=== PATIENT | female | born 1995 | race Caucasian/White ===

== ENCOUNTER → 2021-11-08 | Outpatient (CLI) | payer OTHER, SELFPAY ==
[2021-11-08 15:27] LABS: Absolute Lymphocyte Count 1.72 X10^3/uL (0.83-4.51); Absolute Neutrophil Count 5.3 X10^3/uL (2.0-7.7); Basophil# 0.05 X10^3/uL; Basophil% 0.6 % (0-1); Eosinophil# 0.56 X10^3/uL; Eosinophils% 6.5 % (0-5); Hematocrit 36.9 % (37-47); Lymphocyte # 1.72 X10^3/ul (0.83-4.51); Mean Corp Hgb Conc 35.2 g/dL (32-36); Mean Corpuscular Hgb 34.8 pg (27.0-32.0); Mean Corpuscular Volume 98.7 fL (81-99); Mean Platelet Vol. 9.1 fl (6.2-12.0); Monocyte# 0.92 X10^3/uL; Monocyte% 10.7 % (0-10); NRBC Flagged by Analyzer 0 % (0-5); Neutrophil # 5.33 X10^3/uL (2.7-7.7); Neutrophil % 61.7 % (47-70); Platelet Count 343 K/mm3 (150-450); RBC Distribution Width CV 11.7 % (11.6-14.6); RBC Distribution Width SD 41.8 fl (35.1-43.9); Red Blood Count 3.74 M/mm3 (4.2-5.4); White Blood Count 8.6 K/mm3 (4.4-11.0)
[2021-11-08 17:14] LABS: HIV - WCH Non-Reactive (Nonreactive); Hepatitis B Surface Antigen Non-Reactive (Nonreactive); Hepatitis C Antibody Non-Reactive (Nonreactive); Rubella IgG Reactive (Nonreactive); Syphilis Antibodies Non-reactive
[2021-11-11 00:07] LABS: Chlamydia By Nucleic Acid AMP Negative (Negative)
[2021-11-11 13:27] LABS: Gonococcus By Nucleic Acid AMP Negative (Negative)
== END | disposition home or self-care (01) ==
LOC: WOBLAB 15:03
PROVIDERS: Visit Provider Student in an Organized Health Care Education/Training Program
DX: Z34.81 Encounter for supervision of other normal pregnancy, first trimester (principal)
CPT/HCPCS: 36415; 85025; 86703; 86762; 86780; 86803; 87086; 87340; 87491; 87591

== ENCOUNTER → 2022-03-02 | Outpatient (CLI) | payer OTHER, SELFPAY ==
[2022-03-02 16:17] LABS: Absolute Lymphocyte Count 1.73 X10^3/uL (0.83-4.51); Absolute Neutrophil Count 6.5 X10^3/uL (2.0-7.7); Basophil# 0.04 X10^3/uL; Basophil% 0.4 % (0-1); Eosinophil# 0.44 X10^3/uL; Eosinophils% 4.6 % (0-5); Hematocrit 35.1 % (37-47); Hemoglobin 12.1 g/dL (12.0-15.0); Lymphocyte # 1.73 X10^3/ul (0.83-4.51); Lymphocyte % 18.2 % (19-41); Mean Corp Hgb Conc 34.5 g/dL (32-36); Mean Corpuscular Hgb 34.4 pg (27.0-32.0); Mean Corpuscular Volume 99.7 fL (81-99); Monocyte# 0.64 X10^3/uL; Monocyte% 6.7 % (0-10); NRBC Flagged by Analyzer 0 % (0-5); Neutrophil # 6.48 X10^3/uL (2.7-7.7); Neutrophil % 68.3 % (47-70); Platelet Count 314 K/mm3 (150-450); RBC Distribution Width CV 12.7 % (11.6-14.6); RBC Distribution Width SD 46.6 fl (35.1-43.9); Red Blood Count 3.52 M/mm3 (4.2-5.4); White Blood Count 9.5 K/mm3 (4.4-11.0)
[2022-03-02 17:34] LABS: Glucose Challenge Gest 1H 50g 95 mg/dL (70-140)
== END | disposition home or self-care (01) ==
LOC: WOBLAB 14:43
PROVIDERS: Visit Provider Student in an Organized Health Care Education/Training Program
DX: Z34.82 Encounter for supervision of other normal pregnancy, second trimester (principal)
CPT/HCPCS: 36415; 82950; 85025

== ENCOUNTER → 2022-05-20 | Outpatient (CLI) | payer OTHER, SELFPAY ==
[2022-05-20 16:13] LABS: Absolute Lymphocyte Count 1.25 X10^3/uL (0.83-4.51); Absolute Neutrophil Count 6.3 X10^3/uL (2.0-7.7); Basophil# 0.04 X10^3/uL; Basophil% 0.4 % (0-1); Eosinophil# 0.37 X10^3/uL; Eosinophils% 4.1 % (0-5); Hematocrit 31.3 % (37-47); Hemoglobin 10.4 g/dL (12.0-15.0); Lymphocyte # 1.25 X10^3/ul (0.83-4.51); Lymphocyte % 13.9 % (19-41); Mean Corp Hgb Conc 33.2 g/dL (32-36); Mean Corpuscular Hgb 32.1 pg (27.0-32.0); Mean Corpuscular Volume 96.6 fL (81-99); Mean Platelet Vol. 10.5 fl (6.2-12.0); Monocyte# 0.92 X10^3/uL; Monocyte% 10.2 % (0-10); NRBC Flagged by Analyzer 0 % (0-5); Neutrophil # 6.34 X10^3/uL (2.7-7.7); Neutrophil % 70.5 % (47-70); Platelet Count 294 K/mm3 (150-450); RBC Distribution Width CV 12.7 % (11.6-14.6); Red Blood Count 3.24 M/mm3 (4.2-5.4)
[2022-05-20 17:12] LABS: Syphilis Antibodies Non-reactive
== END | disposition home or self-care (01) ==
LOC: WOBLAB 15:55
PROVIDERS: Visit Provider Student in an Organized Health Care Education/Training Program
DX: Z36.85 Encounter for antenatal screening for Streptococcus B (principal)
CPT/HCPCS: 36415; 85025; 86780; 87081

== ENCOUNTER 2022-06-10 05:18 | Inpatient (IN) | payer OTHER, SELFPAY ==
[2022-06-10] VITALS (42 sets, daily range): BP systolic 95–139; BP diastolic 50–83; PULSE 62–109; RESP 16–18; TEMP 35.7–36.8; O2SAT 95–99; BMI 29.1
[2022-06-10] MEDS: LACTATED RINGERS 500 ML 999 ML IV ×2 (05:35→06:11)
[2022-06-10 05:47] LABS: Absolute Neutrophil Count 5.8 X10^3/uL (2.0-7.7); Basophil# 0.05 X10^3/uL; Basophil% 0.6 % (0-1); Eosinophil# 0.15 X10^3/uL; Eosinophils% 1.7 % (0-5); Hematocrit 33.3 % (37-47); Hemoglobin 11.1 g/dL (12.0-15.0); Lymphocyte % 21.1 % (19-41); Mean Corp Hgb Conc 33.3 g/dL (32-36); Mean Corpuscular Hgb 31.9 pg (27.0-32.0); Mean Corpuscular Volume 95.7 fL (81-99); Mean Platelet Vol. 11.1 fl (6.2-12.0); Monocyte# 1.05 X10^3/uL; Monocyte% 11.6 % (0-10); NRBC Flagged by Analyzer 0 % (0-5); Neutrophil % 64.2 % (47-70); Platelet Count 327 K/mm3 (150-450); RBC Distribution Width CV 12.8 % (11.6-14.6); RBC Distribution Width SD 44.2 fl (35.1-43.9); Red Blood Count 3.48 M/mm3 (4.2-5.4)
[2022-06-10] MEDS: Lactated Ringers 1,000 ML 200 ML IV (06:42)
--- NOTE | 2022-06-10 06:50 | HP.PCM.OB_ITS ---
History and Physical Date of Admission: 06/10/22 HPI: 27-year-old at 39/4 weeks, ISA 06/13/2022 by first trimester ultrasound, admitted for external cephalic version. Fetus in breech position. Plan for external cephalic version, if successful we will proceed with induction of labor at term, if unsuccessful will proceed with primary section. Reports movement. Denies regular contractions, leaking of fluid, vaginal bleeding. Denies headache or vision changes, chest pain or shortness of breath, nausea or vomiting, diarrhea constipation, fevers or chills. complicated by: Breech position [employer] history G1 current Medical history: Seasonal allergies Surgical history: Denies Medications: Zyrtec and vitamin Family history: Noncontributory Social history: Denies tobacco, alcohol, drug use Allergies: No known drug allergies Review of system: Negative otherwise stated above Physical exam Blood pressure 139/80, pulse 103, oxygen saturation 98% on room air General: No acute distress HEENT: Normal cephalic/atraumatic, PERRLA Cardiorespiratory: No increased effort Abdomen: Soft, nontender, gravid Extremities: Minimal edema Neurologic: Cranial nerves II through XII grossly intact, no focal deficits Musculoskeletal: Strength 5 out of 5 throughout extremities FHR: 125/mod rachell/+accel/no decel [place]: irregular Assessment/plan: 27-year-old at 39/4 weeks, ISA 06/13/2022 by first trimester ultrasound, admitted for external cephalic version. complicated by: Breech position. ?Admit to labor and delivery for external cephalic version. Discussed risks of version including, but not limited to: Risk of placental abruption, cord prolapse, rupture of membranes, intolerance, need for emergent section, failure procedure to evita baby. Patient also aware of risks of see section. Risk include but are not limited to: Risk of bleeding to the point transfusion, infection, injury to surrounding tissue including bowel/bladder/major abdominal vessels, VTE, ICU admission. Patient were consented to bolus. ?Patient to get epidural placed. Will give terbutaline x1 just prior to immersion. ?If section needed. We will give 2 g of Ancef and 500 mg of azithromycin preoperatively. ?If external cephalic version successful we will proceed with induction of labor with Cytotec. ?GBS negative
[2022-06-10] MEDS: fentaNYL-bupivacaine (epidural) 100 ML BAG EPIDURAL (07:09)
[2022-06-10] MEDS: Terbutaline 1 MG/ML Vial 0.25 MG SC (07:31)
[2022-06-10] MEDS: Acetaminophen 500 MG Tablet PO (07:52)
[2022-06-10] MEDS: Sodium Citrate/Citric Acid 30 ML UDC PO (07:52)
--- NOTE | 2022-06-10 07:59 | PCM.OP.PRO ---
Procedure Report Date of Procedure: 06/10/22 External cephalic version. Risks and benefits and alternatives have been reviewed. Risks include but are not limited to: Placental abruption, cord prolapse, rupture membranes, intolerance, inability to vert baby. Epidural had been placed. Patient was given 1 dose of terbutaline. Breech position confirmed by ultrasound. Attempted external cephalic version rotating clockwise and counterclockwise. rotation did not move past left and right fundus. Unsuccessful version. We will proceed with section. 2 g Ancef and 500 mg azithromycin preoperatively. Risks and benefits reviewed again.
--- NOTE | 2022-06-10 08:03 | OP.PCM_ITS ---
Details Operative Information Date of Procedure: 06/10/22 Pre-Operative Diagnosis: Haji intrauterine , breech position, failed external cephalic version. Post-Operative Diagnosis: Haji intrauterine , breech position, failed external cephalic version. Indications Narrative: 27-year-old G1 at 39/4 weeks admitted for external cephalic version for breech position. Unable to convert baby to the cephalic position. Therefore patient for primary section. All risk, benefits, alternatives discussed with the patient. Risk include but are not limited to: Risk of bleeding to the point transfusion, infection, injury to surrounding tissue including bowel/bladder, VTE, ICU admission. Patient aware and consented. Classification: JULEE Procedure Type: low transverse Estimated Blood Loss: 700cc Fluids Replaced: 1500cc Findings Description of Procedure: Procedure: Patient was taken to the operating room and epidural was dosed. Patient placed in the supine position with a left lateral tilt. Prepped and draped in the usual sterile fashion. Pfannenstiel skin incision made with scalpel and carried down through subcutaneous tissue. Fascia nicked on either side of the midline and extended bluntly. Reid clamps grasped superior fascial edge which was tented up and underlying rectus muscles were dissected off bluntly and sharply at midline using Parra scissors. Reid clamps moved to inferior fascial edge which was tented up and underlying rectus muscles were dissected off bluntly and sharply at midline using Parra scissors. Rectus muscles were at midline superiorly. Peritoneum grasped with 2 hemostats and incised with Metzenbaum scissors. Peritoneum entered and extended bluntly. Bladder blade placed. Low transverse uterine incision made with scalpel and extended bluntly. Amniotomy clear fluid. Hand placed into the uterus and buttocks elevated to the level of the hysterotomy. Bladder blade removed. Buttocks delivered followed by right and left leg sweeping across the anterior body. Blue towel wrapped around body. Right arm swept across chest and delivered, left arm slipped across chest and delivered. head flexed and delivered. No nuchal cord. Cord clamped and cut. Baby to nursing. Spontaneous delivery of placenta. Uterus exteriorized and cleared of all clots. Bladder blade replaced. Hysterotomy closed with a running stitch followed by second vertical imbricating stitch. Hemostatic. Uterus replaced into the abdominal cavity. Hemostasis confirmed. Peritoneum identified and closed in a running fashion. Muscle reapproximated with 1 horizontal mattress suture. Fascia closed with running stitch. Subcutaneous tissue reapproximated with suture. Skin closed with a running subcuticular stitch. At the end of the procedure all needle, lap, s ponge counts were correct. Apgars pending. UOP: 200cc clear urine Infant A Gender: Male Complications Complications: None
[2022-06-10] MEDS: Cefazolin 2 GM in 0.9% Normal Saline 100 ML IV (08:15)
[2022-06-10] MEDS: Oxytocin 15 Units/NS 250ml 15 UNITS/250 ML IV.SOLN 83 UNITS IV (09:45)
[2022-06-10] MEDS: Ketorolac 30 MG/ML Syringe IV ×3 (09:54→21:04)
[2022-06-10] MEDS: Senna/Docusate Sodium 1 Tablet PO (10:58)
[2022-06-10] MEDS: Acetaminophen 500 MG Tablet 1000 MG PO ×3 (12:11→23:56)
[2022-06-10] MEDS: 0.9% Saline Lock 10 ML Syringe IV ×3 (14:51→21:04)
[2022-06-10] MEDS: Lactated Ringers 1,000 ML 100 ML IV (16:46)
--- NOTE | 2022-06-10 18:51 | NURSING ---
1500 epidural cath removed with tip intact. Pt tolerated well. No drainage noted from site.
[2022-06-10] MEDS: Enoxaparin 40 MG/0.4 ML Syringe SC (20:33)
[2022-06-11] VITALS (7 sets, daily range): BP systolic 92–111; BP diastolic 52–63; PULSE 74–84; RESP 14–16; TEMP 36.1–36.6; O2SAT 95–97
[2022-06-11] MEDS: Ketorolac 30 MG/ML Syringe IV (03:37)
[2022-06-11] MEDS: 0.9% Saline Lock 10 ML Syringe IV (03:37)
[2022-06-11 04:16] LABS: Hematocrit 26.2 % (37-47); Mean Corp Hgb Conc 34.4 g/dL (32-36); Mean Platelet Vol. 10.9 fl (6.2-12.0); Platelet Count 247 K/mm3 (150-450); RBC Distribution Width CV 13.2 % (11.6-14.6); RBC Distribution Width SD 45.3 fl (35.1-43.9); Red Blood Count 2.73 M/mm3 (4.2-5.4); White Blood Count 10.9 K/mm3 (4.4-11.0)
[2022-06-11] MEDS: Acetaminophen 500 MG Tablet 1000 MG PO ×2 (08:49→16:08)
--- NOTE | 2022-06-11 09:13 | PCM.PN.OB ---
Subjective Subjective Feeling well. Lochia minimal. Pain controlled. Working on breast-feeding. Objective Data Objective Data Vital Signs: Vital Signs Temp Pulse Resp BP Pulse Ox O2 Del Method 97.0 F L 76 14 92/55 L 96 Room Air 06/11/22 08:40 06/11/22 08:40 06/11/22 08:40 06/11/22 08:40 06/11/22 08:40 06/11/22 08:40 Oxygen Delivery Method Room Air Weight: 86.999 kg Body Mass Index (BMI) 29.1 Intake & Output: Intake and Output for Last 24 Hours 06/09/22 06/10/22 06/11/22 23:59 23:59 23:59 Intake Total 2291.33 / 2291.33 Output Total 1400 / 1400 Balance 891.33 / 891.33 Lab / Micro Data Attestation: I reviewed the patient's lab results. Result Diagrams: 06/11/22 04:06 Labs: Laboratory Results - last 24 hr 06/11/22 04:06: WBC 10.9, RBC 2.73 L, Hgb 9.0 L, Hct 26.2 L, MCV 96.0, MCH 33.0 H, MCHC 34.4, RDW Std Deviation 45.3 H, RDW Coeff of Gissel 13.2, Plt Count 247, MPV 10.9 Physical Exam Const alert, oriented x3 and no apparent distress HEENT normocephalic Head and Scalp: atraumatic Neck full ROM Resp normal respiratory effort Cardio regular rate GI normal to inspection, nondistended, normoactive bowel sounds GI Narrative: Uterus 2 cm below umbilicus, dressing clean and dry Back/Spine normal ROM Extremity normal to inspection Extremity Narrative: Minimal pedal edema Neuro no focal motor deficits and no sensory deficits noted Psych mental status grossly normal and affect normal Assessment & Plan (1) Delivery by section: PLAN: Postop day 1 status post primary section after failed external cephalic version. Complicated by acute blood loss anemia secondary to surgery. Iron supplement on home-going. Desires Nexplanon placement at her visit. Reviewed wound care. Discharge home today. (2) Other acute postprocedural pain: (3) Acute blood loss as cause of postoperative anemia: (4) Breech presentation delivered:
--- NOTE | 2022-06-11 09:16 | DCINST_ITS ---
Discharge Instructions Diet Discharge Diet: No restrictions Activity Discharge Activity: Return to Normal Activity and May Shower May resume sexual activity in: 4-6 weeks Weight Bearing Status: Weight bearing as tolerated Lifting Restrictions: No greater than 25 pounds Dressing / Incision Call your doctor if your incision/area has: Continuous Slow Oozing, Increased Redness and Swelling at the incision site Call your doctor if you observe: Fever of 101 or Higher, Change in Color, Inability to urinate, Using more than 1 pad per hour, Shortness of breath, Dizziness, Swelling in the ankles, Chest pain and Calf discomfort Remove Dressing in: 1 week Cleanse incision/area with: Soap & Water and Keep Dressing Clean & Dry Follow Up Care Please Follow Up With: Dorothea Stern DO When: 2-week and 6-week visit Test Results: Test results from this visit will be discussed in further detail at your follow- up appointment, if applicable. Discharge Plan Admission Admit Date/Time: 06/10/22 05:18 Primary Reason for Your Visit: section Attending Provider: Dorothea Stern Primary Care Provider: Loren Lee NP Discharge Orders/Prescriptions Prescriptions: New oxycodone 5 mg Tablet 5 mg PO Q6H PRN (Reason: pain) 4 Days Qty: 20 0RF Continued [id number] 1 mg Tablet PO Referrals / Follow Up: Loren Lee NP, [employer] [Primary Care Provider] - Disposition Disposition (needs filled in before D/C Order can be placed): Home, Self Care
[2022-06-11] MEDS: Senna/Docusate Sodium 1 Tablet PO (10:18)
[2022-06-11] MEDS: Ibuprofen 600 MG Tablet PO (12:30)
== END 2022-06-11 19:35 | disposition home or self-care (01) | DRG 787 ==
PROVIDERS: Admitting Provider Student in an Organized Health Care Education/Training Program; PCP Nurse Practitioner Family; Visit Provider Student in an Organized Health Care Education/Training Program
PROC: 10D00Z1 Extraction of Products of Conception, Low, Open Approach (ICD-10-PCS; CPT 59514; principal; 2022-06-10 06:55)
DX: O32.1XX0 Maternal care for breech presentation, not applicable or unspecified (principal); D62 Acute posthemorrhagic anemia; Z3A.39 39 weeks gestation of pregnancy; Z37.0 Single live birth
CPT/HCPCS: 59025; 59050; 76815; 85025; 85027; 86850; 86900; 86901; 99221; 99252; J7120; A4216; G0378; G0463; J2405